=== PATIENT | female | born 1995 | race Caucasian/White ===

== ENCOUNTER 2020-09-19 19:00 | Inpatient (IN) ==
[~2020-09-19 19:00] MED LIST: BECLOMETHASONE 40 MCG INH SCH; MDI INH SCH
[2020-09-19] MEDS ORDERED: Lactated Ringers 1000 ml BAG 1,000 ML IV ONE (20:13)
[2020-09-19] MEDS ORDERED: Buffered Lidocaine 1% SYRIN 1 ml INTRADERM ONE (20:13)
[2020-09-19] MEDS ORDERED: Dinoprostone 10 MG VAG.SUPP VAGINAL ONE (20:13)
[2020-09-19 20:58] LABS: Urine Benzodiazepine Screen None Detected (None Detect); Urine Cannabinoids Screen None Detected (None Detect); Urine Opiates Screen None Detected (None Detect)
[2020-09-19] MEDS ORDERED: Lactated Ringers 1000 ml BAG 1,000 ML IV SCH (21:00)
[2020-09-19] MEDS ORDERED: PTO: Albuterol HFA INHALER 8 gm MDI INH PRN (23:00)
[2020-09-19] MEDS: MDI INH SCH (23:00)
[2020-09-19] MEDS: BECLOMETHASONE 40 MCG INH SCH (23:00)
[2020-09-20] MEDS: BECLOMETHASONE 40 MCG INH SCH ×2 (09:18→21:09)
[2020-09-20] MEDS: MDI INH SCH ×2 (09:18→21:09)
[2020-09-20] MEDS: MESALAMINE 500 MG PO SCH (09:21)
[2020-09-20] MEDS ORDERED: Oxytocin in LR 20 UNITS/1,000 ML BAG IVPB SCH (15:00)
[2020-09-20 15:20] LABS: Hematocrit 39 % (35-47); Hemoglobin 13.6 g/dL (12.0-16.0); Mean Corpuscular HGB Conc 35 g/dL (31-36); Mean Corpuscular Hemoglobin 33 pg (27-31); Mean Corpuscular Volume 94 fL (80-97); Mean Platelet Volume 8.1 fL (7.4-10.4); Platelet Count 272 10^3/uL (150-450); Red Blood Count 4.16 10^6 /uL (3.70-4.87); Red Cell Distribution Width 13 % (10-15); White Blood Count 12.1 10^3/uL (3.5-10.8)
[2020-09-20 15:59] LABS: ABS Basophils 0.1 10^3/ul (0-0.2); ABS Eosinophils 0.1 10^3/ul (0-0.6); ABS Lymphocytes 1.9 10^3/ul (1.0-4.8); ABS Monocytes 1.2 10^3/ul (0-0.8); ABS Neutrophils 8.7 10^3/ul (1.5-7.7); Eosinophil % 1.1 %
[2020-09-21] MEDS ORDERED: Glycerin ADULT 2.4 gm SUPP PR PRN (01:59)
[2020-09-21] MEDS ORDERED: RHO D Immune Globulin (HUMAN) 300 MCG = 1,500 I.U. INJ IM PRN (01:59)
[2020-09-21] MEDS ORDERED: Witch Hazel PAD JAR TOPICAL PRN (01:59)
[2020-09-21] MEDS ORDERED: Dibucaine 1% OINT 28.35 GM TUBE PR PRN (01:59)
[2020-09-21] MEDS ORDERED: Oxytocin in LR 20 UNITS/1,000 ML BAG IVPB SCH (02:00)
[2020-09-21] MEDS ORDERED: Lactated Ringers 1000 ml BAG 1,000 ML IV SCH (02:00)
[2020-09-21] MEDS ORDERED: Lidocaine 1% VIAL 10 MG/ML VIAL ONE (05:22)
[2020-09-21] MEDS: MESALAMINE 500 MG PO SCH (08:23)
[2020-09-21] MEDS: MDI INH SCH ×2 (08:23→23:34)
[2020-09-21] MEDS: BECLOMETHASONE 40 MCG INH SCH ×2 (08:23→23:34)
[2020-09-22 06:13] LABS: Hematocrit 31 % (35-47); Hemoglobin 10.9 g/dL (12.0-16.0); Mean Corpuscular HGB Conc 35 g/dL (31-36); Mean Corpuscular Hemoglobin 33 pg (27-31); Mean Corpuscular Volume 94 fL (80-97); Mean Platelet Volume 7.6 fL (7.4-10.4); Platelet Count 226 10^3/uL (150-450); Red Blood Count 3.35 10^6 /uL (3.70-4.87); Red Cell Distribution Width 13 % (10-15); White Blood Count 12.4 10^3/uL (3.5-10.8)
[2020-09-22 07:00] LABS: ABS Basophils 0.1 10^3/ul (0-0.2); ABS Eosinophils 0.2 10^3/ul (0-0.6); ABS Lymphocytes 2.6 10^3/ul (1.0-4.8); ABS Monocytes 0.8 10^3/ul (0-0.8); ABS Neutrophils 8.7 10^3/ul (1.5-7.7)
[2020-09-22] MEDS: MESALAMINE 500 MG PO SCH (09:21)
[2020-09-22] MEDS: MDI INH SCH ×2 (09:22→19:25)
[2020-09-22] MEDS: BECLOMETHASONE 40 MCG INH SCH ×2 (09:22→19:25)
[2020-09-23 08:11] VITALS: BP 123/78
[2020-09-23] MEDS: MESALAMINE 500 MG PO SCH (09:16)
[2020-09-23] MEDS: MDI INH SCH (09:17)
[2020-09-23] MEDS: BECLOMETHASONE 40 MCG INH SCH (09:17)
== END 2020-09-23 11:43 | disposition home or self-care (01) | DRG 560 ==
LOC: MCHOBOUT 19:00 → MCHOB 20:23
PROVIDERS: ADMIT Midwife; ATTEND Midwife

== ENCOUNTER 2022-10-27 21:20 | Inpatient (IN) ==
[2022-10-27] MEDS ORDERED: Buffered Lidocaine 1% SYRIN 1 ml INTRADERM ONE (21:31)
[2022-10-27] MEDS ORDERED: Lactated Ringers 1000 ml BAG 1,000 ML IV ONE (21:31)
[2022-10-27] MEDS ORDERED: Lactated Ringers 1000 ml BAG 1,000 ML IV SCH (22:00)
[2022-10-27] MEDS ORDERED: Witch Hazel PAD JAR TOPICAL PRN (23:13)
[2022-10-27] MEDS ORDERED: RHO D Immune Globulin (HUMAN) 300 MCG = 1,500 I.U. INJ IM PRN (23:13)
[2022-10-27] MEDS ORDERED: Glycerin ADULT 2.4 gm SUPP PR PRN (23:13)
[2022-10-27] MEDS ORDERED: Dibucaine 1% OINT 28.35 GM TUBE PR PRN (23:13)
[2022-10-28 01:43] LABS: Urine Benzodiazepine Screen None Detected (None Detect); Urine Cannabinoids Screen None Detected (None Detect); Urine Opiates Screen None Detected (None Detect)
[2022-10-28 06:47] LABS: ABS Basophils 0.1 10^3/ul (0-0.2); ABS Eosinophils 0.2 10^3/ul (0-0.6); ABS Lymphocytes 2.3 10^3/ul (1.0-4.8); ABS Monocytes 1.3 10^3/ul (0-0.8); ABS Neutrophils 11.5 10^3/ul (1.5-7.7); Hematocrit 39 % (35-47); Hemoglobin 12.6 g/dL (12.0-16.0); Lymphocyte % 14.9 %; Mean Corpuscular HGB Conc 33 g/dL (31-36); Mean Corpuscular Hemoglobin 31 pg (27-31); Mean Corpuscular Volume 94 fL (80-97); Mean Platelet Volume 8.3 fL (7.4-10.4); Platelet Count 225 10^3/uL (150-450); Red Blood Count 4.13 10^6 /uL (3.70-4.87); Red Cell Distribution Width 14 % (10-15); White Blood Count 15.3 10^3/uL (3.5-10.8)
[2022-10-28 19:56] VITALS: BP 120/83
== END 2022-10-28 22:58 | disposition home or self-care (01) | DRG 560 ==
LOC: MCHOBOUT 21:20 → MCHOB 21:32
PROVIDERS: ADMIT Midwife; ATTEND Midwife